=== PATIENT | female | born 1985 | race Two or more races ===

== ENCOUNTER 2021-01-01 15:32 | Emergency (ER) | payer OTHER, SELFPAY ==
[2021-01-01 15:54] VITALS: BP 142/84; PULSE 86; RESP 16; TEMP 36.2; O2SAT 96; BMI 38.6
[2021-01-01] MEDS: Lidocaine HCl 2 % MPF 5 ML VIAL INFILTRATI ×2 (17:03)
[2021-01-01] MEDS: Diphth,Pertus(ACell),Tet Adult 0.5 ML SYRINGE IM (17:36)
--- NOTE | 2021-01-01 17:40 | ED_ITS ---
HPI - Extremity Injury (Lower) General Chief Complaint: Extremity Injury, Lower Stated Complaint: TOE INJ Time Seen by Provider: 01/01/21 16:11 Source: patient Mode of arrival: ambulatory Limitations: no limitations History of Present Illness HPI Narrative: Patient presents for right big toe pain. Patient states she hit her right big toe on a picnic table and immediately her toenail pulled up and now is almost fallen off. Patient denies any other complaints Related Data Allergies Allergy/AdvReac Type Severity Reaction Status Date / Time No Known Allergies Allergy Unknown Unverified 02/23/20 15:38 Review of Systems Review of Systems: Yes all other systems are reviewed and are negative Constitutional: Constitutional: Reports as per HPI and Reports no additional constitutional complaints Eyes: Eyes: Reports as per HPI and Reports no additional eye complaints ENT: Reports system reviewed and no additional complaints, except as documented and Reports as per HPI Cardiovascular: Cardiovascular: Reports as per HPI and Reports no additional cardiovascular complaints Respiratory: Respiratory: Reports as per HPI and Reports no additional respiratory complaints Gastrointestinal: Gastrointestinal: Reports as per HPI and Reports no additional gastrointestinal complaints Genitourinary: Genitourinary: Reports no additional female genitourinary complaints and Reports as per HPI Musculoskeletal: Musculoskeletal: Reports no additional musculoskeletal complaints and Reports as per HPI Comments: Right big toe pain Neurologic: Reports system reviewed and no additional complaints, except as documented and Reports as per HPI Psychiatric: Psychiatric: Reports no additional psychiatric complaints and Reports as per HPI [facility] Past Medical History Medical History (Updated 01/01/21 @ 17:50 by MUKUL Gregg) No known health problems Social History Social History Advance Directives: No Advance Directives Information Provided: No Patient : No Physical Exam Vital Signs: Vital Signs: Last Vital Signs Temp 97.2 F 01/01/21 15:54 Pulse 86 01/01/21 15:54 Resp 16 01/01/21 15:54 BP 142/84 H 01/01/21 15:54 Pulse Ox 96 01/01/21 15:54 Body Mass Index 38.6 Const: General: cooperative, healthy appearing, comfortable, no acute distress, well developed, alert, awake and Physically active Orientation/consciousness: patient oriented x3 HENMT: Head: Yes normal to inspection, Yes No palpable skull fracture present, Yes normocephalic, Yes atraumatic and No abrasion Eyes: General: appearance normal, both eyes and all related structures Neck: Neck: Yes normal visual inspection, Yes full ROM, Yes no lymphadenopathy, Yes no meningeal signs, Yes trachea midline, Yes supple and No tender Chest: Chest palpation & inspection: normal inspection of the chest and normal palpation of entire chest wall Resp: Effort & Inspection: normal respiratory effort and able to speak in complete sentences Auscultation: clear to auscultation bilaterally Cardio: Jugular venous distension: no JVD Heart sounds: S1 normal heart sound present and S2 normal heart sound present GI: Inspection: Yes normal to inspection and No abdominal wall ecchymosis Palpation (GI): Soft to palpation, not firm, nontender, no guarding and not rigid : General: No CVA tenderness and Yes no CVA tenderness Back/Spine/Pelvis: Back: no CVA tenderness, No CVA tenderness and No back tenderness Skin: General skin exam: no rashes or lesions noted and elasticity normal Neuro: General: patient oriented x3, gait normal, no meningeal signs and CN's II-XI intact bilaterally Cranial nerves: Yes CN's II-XII intact bilaterally Extrem: General: Yes normal to inspection and Yes full ROM Ankle/foot/toe images: 1. Nail avulsion. Nail almost coming off. Nail will have to be removed. Psych: Appearance: grossly normal, well kempt and not disheveled Course Course Course Narrative: Nail be removed. Reevaluation(s) Reevaluation #1: Cleaned with sterile saline and Betadine iodine. 7 mL of 2 % lidocaine used for digital block. Nail plate removed with scissors and forceps. Nonstick adhering placed. Dressing placed. Patient given Tdap Time: 17:40 MDM - Extremity Injury (Lower) MDM Narrative Medical decision making narrative: Nail avulsion Discharge Plan Discharge Clinical Impression: Avulsion of nail Patient Disposition: Home, Self-Care Instructions: Nail Avulsion (ED), Nail Removal (ED) Additional Instructions: Your nail was removed. The nail will grow back. Return to the ED for any swelling, redness, pus discharge, foul odor, bluish black discoloration, fever, chills, any other concerning symptoms. Did take [id number] Motrin or Tylenol for pain relief Interventions: ED Discharge Assessment Last Done: 01/01/21 18:07 Discharge Date/Time: 01/01/21 18:10 Print Language: Slovenian
--- NOTE | 2021-01-01 18:06 | PC.NURSE ---
PT LEFT TOE RIGHT LARGE TOE NAIL REMOVED BY MUKUL BELTRAN. DSD APPLIED WITH BACITRACIN. POSP OP SHOE TO RIGHT FOOT.
== END 2021-01-01 18:10 | disposition home or self-care (01) ==
PROVIDERS: Emergency Provider Emergency Medicine
DX: S91.201A Unspecified open wound of right great toe with damage to nail, initial encounter (principal); W22.8XXA Striking against or struck by other objects, initial encounter; Y93.89 Activity, other specified; Y92.828 Other wilderness area as the place of occurrence of the external cause; Y99.9 Unspecified external cause status
CPT/HCPCS: 11730; 90471; 90715; 99283; 99284